=== PATIENT | male | born 1970 | race Caucasian/White ===

== ENCOUNTER 2020-04-07 06:31 | Emergency (ER) | payer OTHER ==
[~2020-04-07] VITALS: Ht 175.3 cm; Wt 63.5 kg
[2020-04-07] MEDS ORDERED: NAPROSYN500 MG PO (06:58)
[2020-04-07 06:59] LABS: ABSOLUTE NEUTROPHILS 5.5 thou/uL (1.4-8.2); BASOPHILS 0.9 % (0.0-2.0); EOSINOPHILS 4.5 % (0.0-3.0); HEMATOCRIT 44.8 % (42.0-52.0); HEMOGLOBIN 15.4 gm/dL (14.0-18.0); MCHC 34.5 g/dL (28.0-37.0); MCV 92.8 fL (80.0-100.0); MONOCYTES 7.8 % (1.0-8.0); PLATELET COUNT 266 thou/uL (150-400); POLYS 61.8 % (36.0-66.0); RBC 4.83 mil/uL (4.50-6.00); RDW 13.7 % (10.5-14.5); WBC 8.9 thou/uL (4.0-11.0)
[2020-04-07 07:07] LABS: ANION GAP 6 mmol/L (7-16); BUN 22 mg/dL (7-18); CALCIUM 8.5 mg/dL (8.5-10.1); CHLORIDE 103 mmol/L (98-107); CO2 29 mmol/L (21-32); CREATININE 1.2 mg/dL (0.7-1.3); GLUCOSE 109 mg/dL (74-106); POTASSIUM 4.1 mmol/L (3.5-5.1); SODIUM 138 mmol/L (136-145)
[2020-04-07 07:17] LABS: ALBUMIN 3.5 g/dL (3.4-5.0); MAGNESIUM 2.1 mg/dL (1.8-2.4); SGOT 24 U/L (15-37); SGPT 18 U/L (30-65); TOTAL BILIRUBIN 0.3 mg/dL (0.2-1.0); TOTAL PROTEIN 6.9 g/dL (6.4-8.2); TROPONIN-I <0.06 ng/mL (<0.06)
[2020-04-07 08:00] VITALS: BP 103/68
--- NOTE | 2020-04-08 11:46 | EKG ---
[facility] [place] [address] ELECTROCARDIOGRAM REPORT Name: JANA CASTAÑEDA Room #: DEP [facility].#: [id number] Admission: 04/07/20 Attend Phys: Discharge: 04/07/20 Date of : 66 Report #: [id number] THIS REPORT FOR: cc: KRYSTIAN - [place] family physician/PCP KRYSTIAN - [place] family physician/PCP Marquis Jackson MD ~ THIS REPORT FOR: //name// [facility] ED Test Date: 2020-04-07 Test Time: 06:31:34 Pat Name: JANA CASTAÑEDA Department: Room: Gender: Vice President [employer]ending: SILVIA : 1970 Requested By: Brady Mccormick Order Number: [id number] MD: Marquis Jackson Measurements Intervals [place] Rate: 63 P: 80 UT: 135 QRS: 90 QRSD: 98 T: 54 QT: 387 QTc: 397 Interpretive Statements Sinus rhythm Left atrial enlargement Anteroseptal infarct, age indeterminate Baseline wander in lead(s) V1 No previous ECG available for comparison Electronically Signed On 04-08-2020 11:46:06 CDT by Marquis Jackson [email or web address] <ELECTRONICALLY SIGNED> By: Marquis Jackson MD 04/08/20 1146 Marquis Jackson MD /EPI
== END 2020-04-07 08:01 | disposition home or self-care (01) ==
LOC: ER 06:31
PROVIDERS: Emergency Medicine
DX: R07.89 Other chest pain (principal); F17.210 Nicotine dependence, cigarettes, uncomplicated